=== PATIENT | female | born 1955 | race Caucasian/White ===

== ENCOUNTER 2017-07-19 07:02 | Emergency (ER) | payer OTHER | END 2017-07-19 07:36 | disposition left against medical advice (07) | LOC: EME 07:02 | DX: S61.219A Laceration without foreign body of unspecified finger without damage to nail, initial encounter (principal); W45.8XXA Other foreign body or object entering through skin, initial encounter; Z53.21 Procedure and treatment not carried out due to patient leaving prior to being seen by health care provider ==

== ENCOUNTER 2017-08-12 04:00 | Emergency (ER) | payer OTHER ==
[~2017-08-12] VITALS: Ht 172.7 cm; Wt 72.6 kg
[2017-08-12 05:32] LABS: ALBUMIN 4.5 g/dL (3.2-4.8); CHLORIDE 104 mEq/L (99-109); SODIUM 142 mEq/L (136-147)
[2017-08-12 05:33] LABS: BASOPHIL (%) 0.5 % (0-1); BASOPHIL COUNT 0.1 K/uL (0-0.1); EOSINOPHIL (%) 2.3 % (0-5); EOSINOPHIL COUNT 0.2 K/uL (0-0.3); HEMATOCRIT 46.1 % (36.0-46.0); HEMOGLOBIN 15.1 G/DL (11.9-15.5); IMMATURE GRANULOCYTE (%) 0.9 % (0.0-0.7); LYMPHOCYTE (%) 16.7 % (15-42); LYMPHOCYTE COUNT 1.8 K/uL (1.0-2.8); MCHC 32.8 G/DL (30.0-36.0); MCV 91.5 FL (83-99); MONOCYTE (%) 5.7 % (3-12); MONOCYTE COUNT 0.6 K/uL (0-0.8); NEUTROPHIL (%) 73.9 % (45-76); NEUTROPHIL COUNT 7.8 K/uL (1.8-6.4); PLATELET COUNT 219 K/uL (156-360); RBC DIS.WIDTH-CV 13.4 % (11.8-14.6); RBC DIS.WIDTH-SD 45.1 % (39-53); RED BLOOD COUNT 5.04 M/uL (3.80-5.20); WHITE BLOOD COUNT 10.6 K/uL (4.1-10.2)
[2017-08-12 05:34] LABS: GLUCOSE 118 mg/dL (70-99)
[2017-08-12 05:35] LABS: TOTAL PROTEIN 7.5 g/dL (6.4-8.3)
[2017-08-12 05:36] LABS: TOTAL BILIRUBIN 0.5 mg/dL (0.0-1.0)
[2017-08-12 05:38] LABS: ALKALINE PHOSPHATASE 79 IU/L (3-129); CREATININE 1.2 mg/dL (0.6-1.3); GFR ESTIMATE (CALCULATED) 49 mL/min/
[2017-08-12 05:39] LABS: UREA NITROGEN (BUN) 14 mg/dL (9-23)
[2017-08-12 05:40] LABS: AST (GOT) 22 IU/L (2-34)
[2017-08-12 05:41] LABS: ALT (GPT) 17 IU/L (3-49); LIPASE 30 U/L (1.0-51.0)
[2017-08-12 06:06] LABS: APPEARANCE CLEAR ((CLEAR)); BILIRUBIN NEGATIVE; BLOOD NEGATIVE; COLOR YELLOW ((YELLOW)); GLUCOSE (STRIP) NEGATIVE; KETONES TRACE; LEUKOCYTES NEGATIVE; NITRITE NEGATIVE; PROTEIN (STRIP) NEGATIVE; UROBILINOGEN 0.2 MG/DL (0.2-1.0)
[2017-08-12 06:23] LABS: C DIFF TOXIN NEGATIVE (NEGATIVE)
[2017-08-12] MEDS ORDERED: BENTYL10 MG PO (07:02)
[2017-08-12] MEDS ORDERED: ZOFRAN ODT4 MG PO (07:02)
[2017-08-12 07:29] VITALS: BP 96/62
== END 2017-08-12 07:30 | disposition home or self-care (01) ==
LOC: EME 04:00
PROVIDERS: Emergency Medicine
DX: R11.2 Nausea with vomiting, unspecified (principal); R19.7 Diarrhea, unspecified; R10.12 Left upper quadrant pain; K44.9 Diaphragmatic hernia without obstruction or gangrene; Z85.038 Personal history of other malignant neoplasm of large intestine; Z90.49 Acquired absence of other specified parts of digestive tract; Z92.21 Personal history of antineoplastic chemotherapy; Z15.09 Genetic susceptibility to other malignant neoplasm; Z90.710 Acquired absence of both cervix and uterus; Z87.891 Personal history of nicotine dependence
CPT/HCPCS: 74177; 80053; 81003; 83690; 85025; 87493; 87506; 99281; 99284; J0500; J2405; J7030